=== PATIENT | female | born 1945 | race Two or more races ===

== ENCOUNTER 2023-11-19 11:23 | Inpatient (IN) | payer BC, MEDICARE ==
[~2023-11-19] VITALS: Ht 149.9 cm; Wt 48.5 kg
[~2023-11-19 11:23] MED LIST: AMLO5TAB4 PO; ASPI-605 PO; ATEN100T PO; INSU3INS6 SUBCUT; LEVO88TA5 PO; LOSA50TA3 PO; SIMV20TA2 PO
[2023-11-19] MEDS: IV NS 0.9% 500 ML BAG IV ONE (11:30)
[2023-11-19 12:09] LABS: HEMOGLOBIN 14.3 g/dL (11.5-14.8); MEAN CORPUSCULAR HEMOGLOBIN 30 PG (26.0-33.0); MEAN CORPUSCULAR HGB CONC 33 g/dl (31.0-36.0); RED BLOOD CELL COUNT(AUTO) 4.76 MIL/uL (4.0-5.2)
[2023-11-19 12:17] LABS: CALCIUM, SERUM 8.9 mg/dL (8.5-10.1); CARBON DIOXIDE 20 mmol/L (21-32); CHLORIDE 100 mmol/L (98-107); CREATININE 1.4 mg/dL (0.6-1.3); GLUCOSE 253 mg/dL (74-106); POTASSIUM 3.2 mmol/L (3.5-5.1); SODIUM SERUM 138 mmol/L (136-145); UREA NITROGEN, BLOOD 21 mg/dL (7-18)
[2023-11-19 12:28] LABS: BASOPHILS % (AUTO) 0.2 % (0.0-2.0); EOSINOPHILS % (AUTO) 0.1 % (0.0-6.0); HEMATOCRIT 43 % (33-45); LYMPHOCYTES # (AUTO) 0.7 K/uL (0.8-4.8); LYMPHOCYTES % (AUTO) 12.1 % (20.0-44.0); MEAN CORPUSCULAR VOLUME 91 fL (82-100); MONOCYTES # (AUTO) 0.4 K/uL (0.1-1.30); MONOCYTES % (AUTO) 5.9 % (2.0-12.0); NEUTROPHILS # (AUTO) 4.9 K/uL (1.8-8.9); NEUTROPHILS % (AUTO) 81.7 % (43.0-81.0); PLATELET COUNT (AUTO) 175 K/uL (150-450); RED CELL DISTRIBUTION WIDTH 15.5 % (11.5-15.0)
[2023-11-19] MEDS ORDERED: LEVO88TA5 PO (12:32)
[2023-11-19] MEDS ORDERED: AMLO-213 PO (12:32)
[2023-11-19] MEDS ORDERED: METF-881 PO (12:32)
[2023-11-19] MEDS ORDERED: GLIP10TA21 PO (12:32)
[2023-11-19] MEDS ORDERED: ONDANSETRON HCL/PF 4 MG/2 ML VIAL IVP PRN (13:00)
[2023-11-19] MEDS ORDERED: ZOLPIDEM TARTRATE 5 MG TABLET PO PRN (13:00)
[2023-11-19] MEDS ORDERED: MAGNESIUM HYDROXIDE 30 ML UDC PO PRN (13:00)
[2023-11-19] MEDS ORDERED: Z GUARD REMEDY 4 OZ OINT TP PRN (13:00)
[2023-11-19] MEDS ORDERED: MAG HYDROX/AL HYDROX/SIMETH 30 ML UDC PO PRN (13:00)
[2023-11-19 13:12] LABS: APPEARANCE,URINE CLEAR (CLEAR); BILIRUBIN,URINE NEGATIVE (NEGATIVE); BLOOD, URINE TRACE-INTA Ery/uL (NEGATIVE); COLOR,URINE YELLOW (YELLOW); KETONES,URINE NEGATIVE (NEGATIVE); LEUKOCYTE ESTERASE ,URINE NEGATIVE (NEGATIVE); NITRITE, URINE NEGATIVE (NEGATIVE); PROTEIN,URINE 1+ mg/dl (NEGATIVE); UGLUCOSE 1+ mg/dL (NEGATIVE); UROBILINOGEN,URINE 0.2 EU/dL (0.2)
[2023-11-19 13:19] LABS: ADD URINE CULTURE NO; BACTERIA,URINE Rare /HPF (None Seen); SQUAMOUS EPITHELIAL CELL,UR Few /HPF (None Seen); WBC,URINE 0-2 /HPF (0-3)
[2023-11-19 16:00] VITALS: BP 117/81; TEMP 98.1; O2SAT 97
[2023-11-19] MEDS: IV D5/0.45 NACL 1,000 ML IV PRN (16:15)
[2023-11-19] MEDS: DEXTROSE 50%-WATER 50 ML DISP.SYRIN IV PRN (16:30)
[2023-11-19] MEDS: BLOOD SUGAR DIAGNOSTIC 1 EACH STRIP IN SCH (17:35)
[2023-11-19] MEDS: POTASSIUM CHLORIDE 20 MEQ POWDER PACKET GT ONE (17:35)
[2023-11-19 20:10] VITALS: BP 137/79; TEMP 98.8; O2SAT 96
[2023-11-19] MEDS: INSULIN REGULAR, HUMAN 100 UNIT/ML 3 ML VIAL SQ PRN (21:09)
[2023-11-20] VITALS: BP 125/78; TEMP 98.4; O2SAT 96
[2023-11-20 04:00] VITALS: TEMP 98.8; O2SAT 97
[2023-11-20 04:40] VITALS: BP 142/78; TEMP 98.5; O2SAT 97
[2023-11-20 06:50] LABS: BASOPHILS % (AUTO) 0.4 % (0.0-2.0); HEMOGLOBIN 12.4 g/dL (11.5-14.8); LYMPHOCYTES # (AUTO) 1.5 K/uL (0.8-4.8); LYMPHOCYTES % (AUTO) 22.8 % (20.0-44.0)
[2023-11-20 07:02] LABS: EOSINOPHILS % (AUTO) 0.7 % (0.0-6.0); HEMATOCRIT 38 % (33-45); MEAN CORPUSCULAR HEMOGLOBIN 30 PG (26.0-33.0); MEAN CORPUSCULAR HGB CONC 33 g/dl (31.0-36.0); MEAN CORPUSCULAR VOLUME 90 fL (82-100); MONOCYTES # (AUTO) 0.4 K/uL (0.1-1.30); MONOCYTES % (AUTO) 6.8 % (2.0-12.0); NEUTROPHILS # (AUTO) 4.5 K/uL (1.8-8.9); NEUTROPHILS % (AUTO) 69.3 % (43.0-81.0); PLATELET COUNT (AUTO) 154 K/uL (150-450); RED BLOOD CELL COUNT(AUTO) 4.22 MIL/uL (4.0-5.2); RED CELL DISTRIBUTION WIDTH 15.9 % (11.5-15.0); WHITE BLOOD COUNT (AUTO) 6.4 K/uL (4.3-11.0)
[2023-11-20 07:11] LABS: CREATINE KINASE, TOTAL 82 U/L (26-192)
[2023-11-20 07:28] LABS: CALCIUM, SERUM 8.6 mg/dL (8.5-10.1); CARBON DIOXIDE 26 mmol/L (21-32); CHLORIDE 106 mmol/L (98-107); CREATININE 1.1 mg/dL (0.6-1.3); GLUCOSE 66 mg/dL (74-106); MAGNESIUM 1.4 mg/dL (1.8-2.4); PHOSPHORUS 2.7 mg/dL (2.5-4.9); POTASSIUM 2.9 mmol/L (3.5-5.1); SODIUM SERUM 141 mmol/L (136-145); UREA NITROGEN, BLOOD 13 mg/dL (7-18)
[2023-11-20 08:10] VITALS: BP 136/64; TEMP 98.1; O2SAT 97
[2023-11-20] MEDS: AMLODIPINE BESYLATE 10 MG TABLET PO SCH (09:15)
[2023-11-20] MEDS: LEVOTHYROXINE SODIUM 88 MCG TABLET PO SCH (09:15)
[2023-11-20] MEDS: ATENOLOL 50 MG TABLET PO SCH (09:16)
[2023-11-20] MEDS: MAGNESIUM OXIDE 400 MG TABLET PO ONE (11:42)
[2023-11-20] MEDS: POTASSIUM CHLORIDE 20 MEQ TAB.PRT.SR PO ONE (11:42)
[2023-11-20 16:00] VITALS: BP 120/73; TEMP 99.4; O2SAT 95
[2023-11-20] MEDS: ENOXAPARIN SODIUM 30 MG/0.3 ML DISP.SYRIN SQ SCH (18:40)
[2023-11-20 20:00] VITALS: BP 145/76; TEMP 98.5; O2SAT 93
[2023-11-20] MEDS: ACETAMINOPHEN 325 MG TABLET PO PRN (21:36)
[2023-11-21 07:11] LABS: CALCIUM, SERUM 9.3 mg/dL (8.5-10.1); CARBON DIOXIDE 21 mmol/L (21-32); CHLORIDE 107 mmol/L (98-107); CREATININE 1.3 mg/dL (0.6-1.3); GLUCOSE 95 mg/dL (74-106); SODIUM SERUM 142 mmol/L (136-145); UREA NITROGEN, BLOOD 14 mg/dL (7-18)
[2023-11-21] MEDS ORDERED: D5 IV SCH (07:38)
[2023-11-21] MEDS ORDERED: PERIPHER IV SCH (07:38)
[2023-11-21] MEDS ORDERED: POTASSIUM CL IV SCH (07:38)
[2023-11-21] MEDS ORDERED: NACL IV SCH (07:38)
[2023-11-21] MEDS: POTASSIUM CHLORIDE 20 MEQ TAB.PRT.SR PO ONE (07:53)
[2023-11-21 08:00] VITALS: BP 117/60; TEMP 98.1; O2SAT 97
[2023-11-21 08:48] VITALS: BP 117/60
[2023-11-21] MEDS: DEXTROSE IV SCH (10:04)
[2023-11-21] MEDS: POTASSIUM CHLORIDE IV SCH (10:04)
[2023-11-21] MEDS: [UNRECOGNIZED DRUG - OTHER] IV SCH (10:04)
[2023-11-21] MEDS: MAGNESIUM OXIDE 400 MG TABLET PO ONE (10:07)
[2023-11-21] MEDS ORDERED: AMLO-213 PO (10:34)
[2023-11-21] MEDS ORDERED: ATEN50TA PO (10:34)
[2023-11-21] MEDS ORDERED: MAGN400T8 PO (10:34)
[2023-11-21] MEDS ORDERED: LEVO75TA PO (10:34)
[2023-11-22] MEDS ORDERED: LEVOTHYROXINE SODIUM 75 MCG TABLET PO SCH (07:30)
== END 2023-11-21 19:01 | DRG 640 ==
LOC: ER 11:32 → TELE-TD 14:18 → TELE 14:54 → MED 11-20 10:33
PROVIDERS: ADMIT Nurse Practitioner Acute Care; ATTEND Nurse Practitioner Acute Care
DX: E86.9 Volume depletion, unspecified (principal); G93.41 Metabolic encephalopathy; N17.0 Acute kidney failure with tubular necrosis; N39.0 Urinary tract infection, site not specified; E11.649 Type 2 diabetes mellitus with hypoglycemia without coma; R62.7 Adult failure to thrive; E03.9 Hypothyroidism, unspecified; E83.42 Hypomagnesemia; E87.6 Hypokalemia; F17.210 Nicotine dependence, cigarettes, uncomplicated; I10 Essential (primary) hypertension; Z79.84 Long term (current) use of oral hypoglycemic drugs; Z86.73 Personal history of transient ischemic attack (TIA), and cerebral infarction without residual deficits; R53.1 Weakness; Z68.21 Body mass index [BMI] 21.0-21.9, adult; B96.89 Other specified bacterial agents as the cause of diseases classified elsewhere
CPT/HCPCS: 36415; 70450-TC; 71045-TC; 80048-TC; 81001; 82550-TC; 82962-TC; 83735-TC; 84100-TC; 84443-TC; 84484-TC; 85025-TC; 87086-TC; 92526; 92611-TC; 97110-TC; 97116-TC; 97530-TC; 97535-TC; A4223; G0378; J1650; J1815; J3480; J3490; J7040